=== PATIENT | female | born 1935 | race Caucasian/White ===

== ENCOUNTER 2017-04-27 16:04 | Inpatient (IN) | payer MEDICARE ==
[2017-04-27] MEDS ORDERED: Sodium Bicarb 50 MEQ/50 ML VIAL ONE (16:50)
[2017-04-27] MEDS ORDERED: DOPamine/D5W 400 mg/250 ml PREMIX ONE (16:50)
[2017-04-27] MEDS ORDERED: Cardioplegic Soln 1,000 ML BAG ONE (16:50)
[2017-04-27] MEDS ORDERED: Potassium Chloride 60 MEQ/30 ML VIAL ONE (16:50)
[2017-04-27] MEDS ORDERED: Papaverine 60 MG/2 ML VIAL ONE (16:50)
[2017-04-27] MEDS ORDERED: Thrombin 5000 UNITS/5 ML VIAL ONE (16:50)
[2017-04-27] MEDS ORDERED: Heparin 30,000 units/30 ml VIAL ONE (16:50)
[2017-04-27] MEDS ORDERED: Calcium Chloride 1 GM/10 ML Abboject SYRINGE ONE (16:50)
[2017-04-27] MEDS ORDERED: Lidocaine 2% PF 100 mg/5 ml Syringe ONE (16:50)
[2017-04-27] MEDS ORDERED: Nitroglycerin 50 MG/250 ML BOT ONE (16:50)
[2017-04-27] MEDS ORDERED: Mannitol 12.5 GM/50 ML ONE (16:50)
[2017-04-27] MEDS ORDERED: Magnesium Sulfate 1 GM/2 ML VIAL ONE (16:50)
[2017-04-27] MEDS ORDERED: Heparin 5,000 UNITS/ML VIAL ONE (16:50)
[2017-04-27] MEDS ORDERED: Protamine Sulfate 250 MG/25 ML VIAL ONE (16:50)
[2017-04-27] MEDS ORDERED: Aminocaproic Acid 5 GM/20 ML VIAL ONE (16:50)
[2017-04-27 17:20] LABS: Troponin I 0.495 ng/mL (< 0.028)
[2017-04-27] MEDS ORDERED: Ondansetron HCl/PF 4 MG/2 ML Vial IVP PRN ×2 (20:01→21:16)
[2017-04-27] MEDS ORDERED: Ondansetron ODT 4 MG TAB SL PRN (20:01)
[2017-04-27] MEDS ORDERED: Acetaminophen 325 MG TAB PO PRN (20:01)
[2017-04-27 20:10] LABS: Troponin I 0.738 ng/mL (< 0.028)
[2017-04-27] MEDS ORDERED: Nitroglycerin 0.4 MG TAB (25 Tab Bottle) PO PRN (21:16)
[2017-04-27] MEDS ORDERED: cloNIDine 0.1 MG TAB PO PRN (21:16)
[2017-04-27] MEDS ORDERED: Zolpidem Tartrate 5 MG TAB PO PRN (21:16)
[2017-04-27] MEDS ORDERED: NIFEdipine XL 60 MG TAB PO PRN (21:16)
[2017-04-27] MEDS ORDERED: Acetaminophen 500 MG TAB PO PRN (21:16)
[2017-04-27] MEDS ORDERED: Ondansetron ODT 4 MG TAB PO PRN (21:16)
[2017-04-27] MEDS ORDERED: hydrALAZINE 20 MG/ML VIAL SLOW IVP PRN (21:16)
[2017-04-28 01:04] LABS: Critical Call Chem Troponin I RESULT DECREASING; Troponin I 0.698 ng/mL (< 0.028)
--- NOTE | 2017-04-28 03:19 | HP ---
DATE OF ADMISSION: 04/27/2017 PRIMARY CARE PHYSICIAN: Patricia Carlos M.D. CHIEF COMPLAINT: Neck and arm pain. HISTORY OF PRESENT ILLNESS: This is an 81-year-old female, who presents to [facility] and transferred from [facility] after the patient presented w ith complaints of neck pain and pressure associated with arm discomfort over the last 3-4 weeks. Th e patient states the symptoms increased and worsened over the last 24-48 hours with associated diaph oresis. The patient also noted associated shortness of breath, but no nausea, vomiting, or diarrhea . The patient denied any recent trauma, injury, increased cough, congestion, or fever. The patient admits these symptoms are worse with increased stress in her life as she is the primary care provid er for her who has advanced dementia. The patient denies any known prior history of coronar y artery disease, but does state a longstanding history of hypertension, on multiple antihypertensiv e medications. The patient states she underwent echocardiogram evaluation in 10/2016, at which poin t she was told it was normal. The patient remains fairly active without a consistent exercise regim en. The patient does relate several medical conditions over the last 1-2 years that have been troub ling and leading to surgical intervention including removal of large ovarian tumor as well as eye coles rgery. The patient does state that she becomes \\\\"stressed out\\\\" and is a \\\\"worrier.\\\\" The ambreen ent denies any specific true chest pain. In the emergency room, the patient underwent general evalu ation with screening troponin I at 0.39 increasing to 0.74 on serial assessment. The patient receiv ed Lovenox 70 mg x1 dose in addition to nitroglycerin and IV metoprolol. The patient also received aspirin 240 mg. The patient was transferred to [facility] for further evalua tion. PAST MEDICAL HISTORY: 1. Hypertension with current treatment. 2. Osteoarthritis. 3. Hyperlipidemia. 4. History of ovarian tumor, status post resection. 5. Umbilical hernia. PAST SURGICAL HISTORY: 1. Status post hysterectomy. 2. Status post resection of ovarian tumor. 3. Status post bilateral knee surgery. CURRENT MEDICATIONS: 1. Lipitor 40 mg p.o. at bedtime. 2. Colace 200 mg p.o. at bedtime. 3. Fenofibrate 160 mg p.o. daily. 4. Losartan 100 mg p.o. daily. 5. Nifedipine ER 60 mg p.o. q.a.m. and 60 mg p.o. at bedtime. 6. Nabumetone 500 mg p.o. t.i.d. 7. Protonix 40 mg p.o. b.i.d. 8. Triamterene/hydrochlorothiazide 37.5/25 mg 1 tablet p.o. daily. 9. Hydralazine 25 mg p.o. t.i.d. ALLERGIES: No known drug allergies. FAMILY HISTORY: Both parents with hypertension. Mother with an unknown type of coronary artery dis ease. SOCIAL HISTORY: The patient is , originally from [facility]. No current al cohol, tobacco, or illicit drug use. Functional of all activities of daily living. Accompanied by her son in the hospital. REVIEW OF SYSTEMS: The following complete review of systems was negative, unless otherwise mentione d in the HPI or below: Constitutional: Weight loss or gain, ability to conduct usual activities. Skin: Rash, itching. Eyes: Double vision, pain. ENT/Mouth: Nose bleeding, neck stiffness, pain, tenderness. Cardiovascular: Palpitations, dyspnea on exertion, orthopnea. Respiratory: Shortness of breath, wheezing, cough, hemoptysis, fever, or night sweats. Gastrointestinal: Poor appetite, abdominal pain, heartburn, nausea, vomiting, constipation, or diar speedy. Genitourinary: Urgency, frequency, dysuria, nocturia. Musculoskeletal: Pain, swelling. Neurologic/Psychiatric: Anxiety, depression. Allergy/Immunologic: Skin rash, bleeding tendency. PHYSICAL EXAMINATION: VITAL SIGNS: On admission, blood pressure 165/84, pulse 83, respiratory rate is 18, temperature 97. 6 degrees Fahrenheit, O2 saturation 98% on room air. GENERAL APPEARANCE: This is an 81-year-old female, alert and oriented x3, pleasant, conve rsant, in no acute distress. HEENT: Pupils are equal, round, and reactive to light and accommodation. Extraocular muscles are i ntact. No scleral icterus, no conjunctival injection. Nares patent. OP is clear. Teeth in good r epair. NECK: Supple, no cervical adenopathy, no thyromegaly, no carotid bruits, no JVD appreciated. Cervi yesenia spine with full active and passive range of motion. CHEST: Lungs are clear to auscultation bilaterally. CARDIOVASCULAR: S1 and S2 without noted murmur. ABDOMEN: Obese, soft, nontender, nondistended. Bowel sounds are positive in all four quadrants. T here is no hepatosplenomegaly, no abdominal bruits, no rebound or guarding appreciated. EXTREMITIES: Warm and dry with fair turgor. No clubbing, cyanosis, or asymmetric edema appreciated . Pulses are palpable distally at the dorsalis pedis, posterior tibial, and popliteal arteries bila terally. Capillary refill less than 2 seconds. NEUROLOGIC: Cranial nerves II-XII are grossly intact. No focal or lateralizing signs appreciated. PERTINENT LABORATORY AND X-RAY FINDINGS: Basic metabolic profile within normal limits. Calcium 10. 3. LFTs within normal limits. Troponin I ranged between 0.39-0.74. Albumin 4.1. PT 13.2, INR 1.0 , PTT 27.7. CBC within normal limits. Portable chest x-ray dated 04/27/2017 showed chronic changes in bilateral lung wilson without acute process. EKG dated 04/27/2017 by my interpretation shows a sinus mechanism with heart rates in the 60s. Attenuated R waves noted in the precordial leads. Lef t axis deviation noted. Voltage criteria consistent with left ventricular hypertrophy in the latera l leads. No acute ST-T wave changes appreciated. ASSESSMENT AND PLAN: 1. Non-ST elevation myocardial infarction. The patient will be admitted to the telemetry unit. We will continue aspirin 325 mg daily. The patient received Lovenox 70 mg subcutaneously x1 dose in [facility] emergency room. We will consult Cardiology Service in the a.m. for evaluation and likely left art catheterization. We will continue Lipitor 40 mg p.o. at bedtime, nitroglycerin 0.4 mg every 5 m inutes p.r.n. chest pain. Check fasting lipid profile in the a.m. 2. Hypertension. Resume home antihypertensive regimen and monitor clinical response. 3. Hyperlipidemia. Check fasting lipid profile in the a.m. Continue Lipitor 40 mg p.o. at bedtime . 4. Gastroesophageal reflux. Continue Pepcid 20 mg p.o. b.i.d. 5. Prophylaxis. Sequential compression devices while in bed. Pepcid 20 mg p.o. b.i.d. 6. Code status is FULL. Surrogate medical decision maker is patient's son.
[2017-04-28 03:42] LABS: Anion Gap 13 mmol/L (10-20); BUN (Urea Nitrogen) 19 mg/dL (9.8-20.1); Calc. Creatinine Clearance 74 mL/min (70-130); Calcium 10.2 mg/dL (7.8-10.44); Carbon Dioxide 26 mmol/L (23-31); Chloride 105 mmol/L (98-107); Cholesterol 183 mg/dl (< 200 Desired); Estimated GFR-MDRD 79; LDL Cholesterol, Calculated 82 mg/dL
[2017-04-28 03:50] LABS: Troponin I 0.729 ng/mL (< 0.028)
[2017-04-28 03:56] LABS: Band 1 % (5-11); Hematocrit 37.5 % (36.0-47.0); Mean Platelet Volume 7.5 fL (7.4-10.4); Neutrophil 53 % (42-75); Reactive Lymphocytes 3 % (0-10); Red Blood Cell (RBC) Count 4.22 mill/uL (4.20-5.40); White Blood Cell (WBC) Count 7.9 thou/uL (4.8-10.8)
[2017-04-28] MEDS: hydrALAZINE 25 MG TAB PO SCH ×3 (08:46→20:22)
[2017-04-28] MEDS: Famotidine 20 MG TAB PO SCH ×2 (08:46→20:22)
[2017-04-28] MEDS: Losartan 25 MG TAB PO SCH (08:46)
[2017-04-28] MEDS ORDERED: Aspirin 325 MG TAB PO SCH (09:00)
[2017-04-28] MEDS ORDERED: Triamterene/Hydrochlorothiazide 37.5 mg/25 mg Tablet PO SCH (09:00)
[2017-04-28] MEDS ORDERED: NIFEdipine XL 60 MG TAB PO SCH (09:00)
[2017-04-28] MEDS ORDERED: Fenofibrate Nanocrystallized 145 MG TAB PO SCH (09:00)
[2017-04-28] MEDS ORDERED: Nitroglycerin 2% Ointment 1 INCH/1 GM Packet ONE (13:13)
[2017-04-28] MEDS ORDERED: Zolpidem Tartrate 5 MG TAB PO PRN (13:16)
[2017-04-28] MEDS ORDERED: [UNRECOGNIZED DRUG - REMARK] FS SCH (13:16)
[2017-04-28] MEDS: NIFEdipine XL 60 MG TAB PO SCH ×2 (13:18→20:21)
[2017-04-28] MEDS ORDERED: Iopamidol 370 76% 100 ML VIAL ONE (14:33)
[2017-04-28 15:18] LABS: PTT 29.2 SEC (22.9-36.1); Prothrombin Time 13.7 SEC (12.0-14.7)
--- NOTE | 2017-04-28 15:32 | PDOC.PN ---
- Subjective Encounter Start Date: 04/28/17 Encounter Start Time: 10:00 Subjective: f/u for NSTEMI. No current CP. Admits to some neck discomfort but no -: nausea or diaphoresis. Plan for heart cath today. - Objective Resuscitation Status: Resuscitation Status FULL:Full Resuscitation MAR Reviewed: Yes Vital Signs & Weight: Vital Signs (12 hours) Temp Pulse Resp BP BP BP Pulse Ox 04/28/17 13:18 64 04/28/17 13:05 97.9 F 55 L 18 148/70 H 96 04/28/17 08:58 96 04/28/17 08:45 98.3 F 64 18 189/82 H 96 04/28/17 08:00 98.3 F 64 18 96 04/28/17 04:00 98.0 F 60 16 168/69 H 96 Weight Weight 167 lb 6.4 oz I&O: 04/27/17 04/28/17 04/29/17 06:59 06:59 06:59 Intake Total 510 Output Total 550 Balance -40 Result Diagrams: 04/28/17 03:12 04/28/17 03:12 Additional Labs: Laboratory Tests 04/27/17 04/27/17 04/28/17 16:43 19:32 00:19 Troponin I 0.495 H* 0.738 H* 0.698 H* Triglycerides Cholesterol LDL Cholesterol, Calc HDL Cholesterol 04/28/17 04/28/17 03:12 03:12 Troponin I 0.729 H* Triglycerides 298 H Cholesterol 183 LDL Cholesterol, Calc 82 HDL Cholesterol 41 EKG Reviewed by me: Yes (Tele - SR) Phys Exam - Physical Examination Constitutional: NAD HEENT: PERRLA, oral pharynx no lesions Neck: no JVD, supple Respiratory: no wheezing, clear to auscultation bilateral Cardiovascular: RRR Gastrointestinal: soft, non-tender, no distention, positive bowel sounds Musculoskeletal: no edema, pulses present Neurological: normal sensation, moves all 4 limbs Psychiatric: A&O x 3 Skin: normal turgor, cap refill <2 seconds Dx/Plan (1) NSTEMI (non-ST elevated myocardial infarction) Code(s): I21.4 - NON-ST ELEVATION (NSTEMI) MYOCARDIAL INFARCTION Status: Acute Comment: Left heart cath today, ASA, Statin (2) HTN (hypertension) Code(s): I10 - ESSENTIAL (PRIMARY) HYPERTENSION Status: Acute Qualifiers: Hypertension type: essential hypertension Qualified Code(s): I10 - Essential (primary) hypertension Comment: Continue Losartan, Metoprolol and Nifedipine (3) HLD (hyperlipidemia) Code(s): E78.5 - HYPERLIPIDEMIA, UNSPECIFIED Status: Chronic Comment: Lipitor 40mg HS - Plan plan discussed w/ family, DVT proph w/SCDs Heart cath today -: Continue ASA and Lipitor -: Continue Metoprolol -: Nitrates prn CP -: 2D Echo pending * .
[2017-04-28] MEDS: Metoprolol Tartrate 25 MG TAB PO SCH ×2 (15:56→20:22)
[2017-04-28] MEDS: Nitroglycerin 2% Ointment 1 INCH/1 GM Packet TOP SCH ×2 (15:56→20:23)
--- NOTE | 2017-04-28 16:23 | CON ---
DATE OF CONSULTATION: 04/28/2017 HISTORY OF PRESENT ILLNESS: The patient is an 81-year-old woman who presents with acute onset of back and arm discomfort. The patient has no previous cardiac history. She has a history of hypertension. The patient was in her usual state of health until recently started noting having increasing discomfort in both her arms. This would last for several minutes. The chest discomfort progressed and she presented to the emergency with persistent discomfort. The patient denies having any present discomfort. The patient denies having any PND or orthopnea. PAST MEDICAL HISTORY: 1. Hypertension. 2. Osteoarthritis. 3. Ovarian tumor. PAST SURGICAL HISTORY: Hysterectomy and knee surgery. MEDICATIONS ON ADMISSION: Lipitor 40 at bedtime, hydralazine 25 t.i.d., losartan 100 daily, Colace 200 daily, TriCor 160 daily, Protonix 40 daily, nifedipine 60 b.i.d. and hydralazine 25 t.i.d. SOCIAL HISTORY: Nonsmoker. FAMILY HISTORY: No strong family history of heart disease. ALLERGIES: No known drug allergies. REVIEW OF SYSTEMS: Ten-point system is noticeable for anxiety and depression. No history of easy bruising or bleeding, bright red blood per rectum. PHYSICAL EXAMINATION: GENERAL: This is an elderly woman in no acute distress. Blood pressure 189/82. NECK: No jugular venous distention, no carotid bruits. LUNGS: Clear to auscultation. HEART: Regular rate and rhythm. Normal S1 and S2. ABDOMEN: Soft and nontender. EXTREMITIES: No edema. SKIN: Warm and dry. NEUROLOGIC: Nonfocal. VASCULAR: Radial pulses 2+. LABORATORY DATA: White blood count 7.9, hemoglobin 12.2, hematocrit 37.5 and platelets 238. Sodium was 140, potassium 3.7, chloride 105, bicarbonate 26, BUN 19, creatinine 0.71, troponin is 0.72, cholesterol is 183 and triglycerides 293. IMAGING DATA: Her EKG revealed her to have normal sinus rhythm, left axis deviation and voltage criteria for left ventricular hypertrophy. IMPRESSION AND PLAN: 1. Non-Q-wave myocardial infarction. 2. Hypertension. 3. Dyslipidemia. This patient presents with a non-Q-wave myocardial infarction. I have discussed the option of medical therapy versus invasive evaluation. We will proceed with cardiac catheterization to determine the extent of coronary artery disease. The risks involved in cardiac catheterization including ND, bleeding, stroke, cardiac arrhythmia, and cardiac have been explained to the patient. The patient understands these risks and wishes to proceed. MTDD
--- NOTE | 2017-04-28 18:41 | RAD ---
CHEST ONE VIEW 04/28/17 HISTORY: Chest pain. FINDINGS: The cardiac silhouette is magnified by projection. Pulmonary vasculature is unremarkable. Mediastinum is midline with aortic calcification. There is no lobar consolidation or evidence of pneumothorax. C ardiac monitor leads overlie the chest. IMPRESSION: Atherosclerosis. POS: ALIA
--- NOTE | 2017-04-28 19:03 | CON ---
DATE OF CONSULTATION: 04/28/2017 REASON FOR HOSPITALIZATION: Evaluate patient for coronary artery bypass grafting. ATTENDING PHYSICIAN: Dr. Miranda with [employer]. CONSULTING PHYSICIAN: Dr. Oreilly. Chart reviewed/patient examined/films reviewed. HISTORY OF PRESENT ILLNESS: Ms. Mayes is an 81-year-old woman who presented with number of weeks of h istory of neck and arm pain. At the time of admission, she had cardiac enzymes checked, which were p ositive with a troponin of 0.49. The troponin has risen to 0.72. She underwent cardiac catheterizat ion this afternoon, which showed severe 3-vessel disease. Ejection fraction is preferred at approxim ately 70%. I have been asked to see her and discuss coronary artery disease bypass grafting. POTENTIAL TARGETS: Include an LAD, OM2 and PDA. PAST MEDICAL HISTORY: 1. Hypertension. 2. Hyperlipidemia. 3. Osteoarthritis. 4. History of an ovarian tumor. PAST SURGICAL HISTORY: 1. Hysterectomy. 2. Resection of ovarian tumor. 3. Bilateral knee surgeries. CURRENT MEDICATIONS: 1. Lipitor 40 mg at bedtime. 2. Colace 200 mg at bedtime. 3. Fenofibrate 160 mg q. day. 4. Losartan 100 mg q. day. 5. Nifedipine ER 60 mg b.i.d. 6. Nabumetone 500 mg t.i.d. 7. Protonix 40 mg b.i.d. 8. Triamterene/HCTZ 37.5/25 q. day. ALLERGIES: None. SOCIAL HISTORY: She is . She recently moved to the area from [place] to be closer to her sons. Her has Alzheimer's and she needs to help taking care of her . She has not use d tobacco, alcohol or other drugs. She does not do any vigorous exercise, but does do all of her [employer]. REVIEW OF SYSTEMS: Ten-point review of system is performed and it is negative except as stated above . PHYSICAL EXAMINATION: GENERAL: This is a well-developed, well-nourished woman in no acute distress. VITAL SIGNS: Height is 5 feet 4 inches, weight is 167 pounds, BSA is 1.85. Temperature is 97.9, pul se is 64 and regular, blood pressure is 148/70. NECK: Supple without bruit. LUNGS: Chest is clear bilaterally. HEART: Rhythm is regular, without murmur. ABDOMEN: Soft and nontender. EXTREMITIES: There is no edema. VENOUS: There are no venous varicosities or venous stasis changes. PSYCHIATRIC: The patient is awake, alert and oriented to person, place and time. ASSESSMENT AND PLAN: This is a very pleasant 81-year-old woman who has severe 3-vessel disease, stat us post non-ST elevation and myocardial infarction. Ejection fraction is preserved. I discussed cor onary artery bypass grafting with her and she is agreeable to proceed. Potential target has included LAD, OM2 and PDA. Plan is for surgery in the morning.
[2017-04-28] MEDS ORDERED: Atorvastatin Calcium 40 MG TAB PO SCH (21:00)
[2017-04-28] MEDS ORDERED: Docusate 100 MG CAP PO SCH (21:00)
[2017-04-28] MEDS ORDERED: Metoprolol Tartrate 25 MG TAB PO SCH (21:00)
[2017-04-29] MEDS ORDERED: CEFAZOLIN/Water 2 GM/20 ML SYRINGE SLOW IVP SCH (02:15)
[2017-04-29] MEDS: Losartan 25 MG TAB PO SCH (05:22)
[2017-04-29] MEDS: Nitroglycerin 2% Ointment 1 INCH/1 GM Packet TOP SCH (05:22)
[2017-04-29] MEDS: Metoprolol Tartrate 25 MG TAB PO SCH (05:23)
[2017-04-29] MEDS ORDERED: Midazolam HCl 5 mg/5 ml Vial ONE (06:45)
[2017-04-29] MEDS ORDERED: Fentanyl 250 MCG/5 ML VIAL ONE (06:45)
[2017-04-29] MEDS ORDERED: Heparin 10,000 UNITS/1 ML VIAL 30,000 UNITS in Sodium Chloride 0.9% 1,000 ML FS SCH (06:45)
[2017-04-29] MEDS ORDERED: Vecuronium 10 MG VIAL ONE ×2 (06:45→08:05)
[2017-04-29] MEDS ORDERED: CEFAZOLIN/Water 2 GM/20 ML SYRINGE ONE (07:11)
[2017-04-29] MEDS ORDERED: Midazolam HCl 2 mg/2 ml Vial ONE (07:11)
[2017-04-29] MEDS ORDERED: Lidocaine 2% MPF 10 ML AMP (For Epidural Use) ONE (08:05)
[2017-04-29] MEDS ORDERED: Propofol 200 MG/20 ML VIAL ONE (08:05)
[2017-04-29] MEDS ORDERED: Albumin 5% 500 ML ONE (09:05)
[2017-04-29] MEDS ORDERED: Hetastarch 6% 500 ML 500 ML IVPB PRN (11:32)
[2017-04-29] MEDS ORDERED: D5 1/2 NS w/20 mEq KCL 1,000 ML IV SCH (11:32)
[2017-04-29] MEDS ORDERED: DOPamine 400 MG/D5W 250 ML 250 ML IVPB PRN (11:32)
[2017-04-29] MEDS ORDERED: Fentanyl 100 MCG/2 ML VIAL SLOW IVP PRN (11:32)
[2017-04-29] MEDS ORDERED: Nitroglycerin 50 MG/250 ML BOT 250 ML IVPB PRN (11:32)
[2017-04-29] MEDS ORDERED: Bisacodyl 5 MG TAB PO PRN (11:32)
[2017-04-29] MEDS ORDERED: hydrALAZINE 20 MG/ML VIAL SLOW IVP PRN (11:32)
[2017-04-29] MEDS ORDERED: Acetaminophen 325 MG TAB PO PRN (11:32)
[2017-04-29] MEDS ORDERED: Morphine PF 1 MG/ML SYR IVP PRN (11:32)
[2017-04-29] MEDS ORDERED: HYDROcodone/Acetaminophen 5/325 mg Tablet PO PRN (11:32)
[2017-04-29] MEDS ORDERED: Norepinephrine 8 MG/0.9% NS 250 ML IVPB PRN (11:32)
[2017-04-29] MEDS ORDERED: Guaifenesin DM 100-10/5 ML UDCUP PO PRN (11:32)
[2017-04-29] MEDS ORDERED: Ondansetron HCl/PF 4 MG/2 ML Vial IVP PRN (11:32)
[2017-04-29] MEDS ORDERED: Mag-Al 1200 mg/1200 mg/30 ML UDCUP PO PRN (11:32)
[2017-04-29] MEDS ORDERED: Promethazine HCl 25 MG/ML VIAL IM PRN (11:32)
[2017-04-29] MEDS ORDERED: Post-Op Insulin Drip Protocol IVPB ONE (11:32)
[2017-04-29] MEDS ORDERED: Bisacodyl 10 MG SUPP PR PRN (11:32)
[2017-04-29] MEDS ORDERED: Dextrose 50% Abboject 50 ML SYRINGE SLOW IVP PRN (11:43)
[2017-04-29] MEDS ORDERED: Dextrose 5% in Water 1,000 ML IV PRN (11:43)
[2017-04-29] MEDS ORDERED: Magnesium 2 GM/NS 0.9% 50 ML 2 GM in Premix Bag 1 BAG IVPB SCH (11:45)
--- NOTE | 2017-04-29 11:57 | OP ---
DATE OF OPERATION: 04/29/2017 PREOPERATIVE DIAGNOSES: Coronary artery disease/diabetes mellitus/hypertension/ hyperlipidemia. POSTOPERATIVE DIAGNOSES: Coronary artery disease/diabetes mellitus/hypertension /hyperlipidemia. PROCEDURES: Coronary artery bypass grafting x3: 1. Left internal mammary artery to 2.0 mm LAD -- good conduit target. 2. Reverse saphenous vein to 1.25 mm PDA -- good conduit and small target. 3. Reverse saphenous vein to 2.5 mm OM2 -- good conduit and target. SURGEON: Dr. Clint Boyce and Dr. David Esquivel. ANESTHESIA: General endotracheal, Dr. Markell Whitt. PUMP TIME: 54 minutes. CROSS-CLAMP TIME: 29 minutes. LOW CORE TEMPERATURE: 32 degrees Celsius. CDL DEDICATED TRUCK DRIVER: Lea Jordan. DRAINS: 24-Sammarinese chest tubes x2. DRIPS: None. TRANSFUSIONS: One unit of packed red blood cells for anemia on pump. PROCEDURE IN DETAIL: After consent was obtained, the patient was brought to the operating room and placed in the supine position on the operating room table. Appropriate anesthetic monitor was placed and general endotracheal anesthesia induced. Chest, abdomen, and legs were prepped and draped in usual sterile fashion. Greater saphenous vein was harvested from the left thigh with endoscopic technique. Due to bleeding from one of the vein branches, a counter incision was made in the mid thigh and the branch clipped. Wounds were irrigated and closed in layers and brittni applied to the mid thigh incision. Median sternotomy was performed. Left internal mammary artery was harvested as a pedicle graft. The patient was systemically heparinized. Distal pedicle was divided and infused with papaverine. Thymic fat and pericardium were divided with electrocautery. Pericardial stay sutures were placed. Aortic and atrial cannulation was performed. After adequate heparinization, the patient was placed on cardiopulmonary bypass after retrograde arterial and venous priming. Distal targets were marked. Aortic cross-clamp was applied and antegrade sanguinous cardioplegic arrest obtained. A 1500 mL of cold [place] cardioplegia was given. Topical cold solution was used. Reversed saphenous vein was anastomosed to the PDA in end-to-side fashion with running 7- 0 Prolene suture. Anastomosis was tested and was hemostatic. Reversed saphenous vein was anastomosed to the second OM in end-to-side fashion with running 7-0 Prolene suture. Anastomosis was tested and was hemostatic. The mammary artery was brought through a window in the pericardium and anastomosed to the distal LAD. On release of the mammary clamp, there was good hooding of the anastomosis and good distal flow. Pedicle was secured with interrupted 6-0 Prolene suture. Cross-clamp was removed and partial occluding clamp placed. Saphenous veins were anastomosed to individual punch sites in the aorta with running 6-0 Prolene suture. Partial occluding clamp was removed and grafts deaired. Anastomoses were inspected for hemostasis, which was good. The patient was warmed and weaned from cardiopulmonary bypass. After resumption of sinus rhythm, good hemodynamics, and a temperature greater than 36.5, bypass was discontinued. Transfusions were given. Protamine was administered. Decannulation was performed and pursestring sutures secured. Both cannulation sites reinforced with vein pledgeted 4-0 Prolene suture. After adequate hemostasis had been obtained, 24-Sammarinese chest tubes were placed in the mediastinum. Vancomycin paste was placed on the sternal edges. Once again, hemostasis was ensured. Sternum was closed with #5 wire. Sternum was then treated with platelet-rich plasma. Wires were twisted and buried. Wounds were irrigated, treated with platelet-poor plasma, and closed in multiple layers. The patient tolerated the procedure well and was transferred to the intensive care unit in stable, but critical condition. THANH
[2017-04-29] MEDS: Ketorolac Tromethamine 30 MG/ML VIAL IVP SCH ×3 (11:59→23:57)
--- NOTE | 2017-04-29 12:12 | RAD ---
CHEST ONE VIEW: History: Post open heart surgery. Comparison: Chest one view, prior day. FINDINGS: Patient intubated. Endotracheal tube tip 3 cm into the wan. There is atelectasis in the lung bases . New central venous catheter is in place with its tip at the right atrium. No acute osseous abnormality. Drains are present. New median sternotomy wires. IMPRESSION: Expected post-operative findings without complication. POS: NAOMI
[2017-04-29 12:16] LABS: Oxyhemoglobin 95.2 % (94.0-97.0); Sodium 143 mmol/L (135-148)
[2017-04-29 12:19] LABS: Mechanical Tidal Volume 500 ml; Mode PSIMV; Modified Allen's Test NOT DONE; Pressure Support 10 cmH2O; Vent YES
[2017-04-29 12:24] LABS: #Eosinphils 0.1 thou/uL (0.0-0.7); #Lymphocytes 1.7 thou/uL (1.20-3.40); #Monocytes 0.4 thou/uL (0.11-0.59); #Neutrophils 9.6 thou/uL (1.40-6.50); %Eosinophils 0.9 % (0.0-10.0); %Lymphocytes 14.6 % (21.0-51.0); %Monocytes 3.5 % (0.0-10.0); Hematocrit 35.5 % (36.0-47.0); Mean Platelet Volume 7.8 fL (7.4-10.4); Red Blood Cell (RBC) Count 4.03 mill/uL (4.20-5.40); White Blood Cell (WBC) Count 11.8 thou/uL (4.8-10.8)
[2017-04-29 12:29] LABS: PTT 33.4 SEC (22.9-36.1); Prothrombin Time 16.4 SEC (12.0-14.7)
[2017-04-29 12:50] LABS: Anion Gap 11 mmol/L (10-20); BUN (Urea Nitrogen) 16 mg/dL (9.8-20.1); Calc. Creatinine Clearance 76 mL/min (70-130); Calcium 8.6 mg/dL (7.8-10.44); Carbon Dioxide 23 mmol/L (23-31); Chloride 109 mmol/L (98-107); Estimated GFR-MDRD 81
[2017-04-29] MEDS: Insulin Regular 300 UNITS/3 ML VIAL SC PRN ×3 (12:59→21:02)
[2017-04-29] MEDS: Potassium Chloride 20 MEQ/100 ML PREMIX BAG IVPB PRN ×2 (13:03→17:52)
[2017-04-29] MEDS: CEFAZOLIN/Water 2 GM/20 ML SYRINGE SLOW IVP SCH ×2 (13:03→20:59)
[2017-04-29] MEDS ORDERED: Magnesium 2 GM/NS 0.9% 100 ML 2 GM in Premix Bag 1 BAG IVPB SCH (13:30)
--- NOTE | 2017-04-29 14:24 | PDOC.PN ---
- Subjective Encounter Start Date: 04/29/17 Encounter Start Time: 14:00 Subjective: f/u CABG x 3v after NSTEMI. Remains intubated currently on Nitro gtt. -: Weaning mech vent per protocol. - Objective Resuscitation Status: Resuscitation Status FULL:Full Resuscitation MAR Reviewed: Yes Vital Signs & Weight: Vital Signs (12 hours) Temp Pulse Resp BP Pulse Ox 04/29/17 13:00 97.9 F 04/29/17 12:00 10 L 04/29/17 11:32 97.9 F 68 10 L 98 04/29/17 05:00 97.9 F 58 L 18 159/69 H 94 L Weight Weight 168 lb Most Recent Monitor Data Heart Rate from ECG 74 NIBP 121/66 NIBP BP-Mean 75 Respiration from ECG 16 SpO2 98 I&O: 04/28/17 04/29/17 04/30/17 06:59 06:59 06:59 Intake Total 510 840 120 Output Total 550 1370 770 Balance -40 -530 -650 Result Diagrams: 04/29/17 12:11 04/29/17 12:11 Additional Labs: Accuchecks 04/29/17 04/29/17 04/29/17 10:29 10:02 09:24 POC Glucose 146 H 133 H 120 H 04/29/17 08:10 POC Glucose 105 Laboratory Tests 04/27/17 04/27/17 04/28/17 16:43 19:32 00:19 WBC Hgb Potassium Troponin I 0.495 H* 0.738 H* 0.698 H* Triglycerides Cholesterol LDL Cholesterol, Calc HDL Cholesterol 04/28/17 04/28/17 04/28/17 03:12 03:12 03:12 WBC 7.9 Hgb 12.2 Potassium 3.7 Troponin I 0.729 H* Triglycerides 298 H Cholesterol 183 LDL Cholesterol, Calc 82 HDL Cholesterol 41 Radiology Reviewed by me: Yes (PCXR - lines/tubes in place, post-op changes) EKG Reviewed by me: Yes (Tele - SR in 60's) Phys Exam - Physical Examination opens eyes to name briefly, mech vent with ETT in place HEENT: oral pharynx no lesions Neck: no JVD, supple Respiratory: no wheezing, clear to auscultation bilateral Cardiovascular: RRR Gastrointestinal: soft, non-tender, no distention, positive bowel sounds chest incision CDI with surgical dressing Musculoskeletal: no edema, pulses present Neurological: moves all 4 limbs Skin: normal turgor, cap refill <2 seconds Dx/Plan (1) NSTEMI (non-ST elevated myocardial infarction) Code(s): I21.4 - NON-ST ELEVATION (NSTEMI) MYOCARDIAL INFARCTION Status: Acute Comment: Left heart cath with severe 3v dz, ASA, Statin (2) S/P CABG x 3 Code(s): Z95.1 - PRESENCE OF AORTOCORONARY BYPASS GRAFT Status: Acute Comment: post-op CABG protocol, Nitro gtt (3) HTN (hypertension) Code(s): I10 - ESSENTIAL (PRIMARY) HYPERTENSION Status: Acute Qualifiers: Hypertension type: essential hypertension Qualified Code(s): I10 - Essential (primary) hypertension Comment: Continue Losartan, Metoprolol and Nifedipine (4) HLD (hyperlipidemia) Code(s): E78.5 - HYPERLIPIDEMIA, UNSPECIFIED Status: Chronic Comment: Lipitor 40mg HS (5) Hypokalemia Code(s): E87.6 - HYPOKALEMIA Status: Acute Comment: KCL replacement with CCU electrolyte protocol - Plan plan discussed w/ family, respiratory therapy, DVT proph w/SCDs Continue routine CABG protocol -: Wean off Mech vent per protocol -: KCL replacment -: Wean Nitro gtt -: AM lab: BMP, CBC * .
[2017-04-29 15:45] LABS: Oxyhemoglobin 94.3 % (94.0-97.0); Sodium 143 mmol/L (135-148)
[2017-04-29 15:46] LABS: Mode CPAP; Pressure Support 5 cmH2O; Vent YES
--- NOTE | 2017-04-29 16:13 | CON ---
DATE OF CONSULTATION: 04/29/2017 SERVICE: Pulmonary Medicine. INTERVAL HISTORY: The patient is an 81-year-old white female with past medical history significant for hypertension and dyslipidemia. She was in her usual state of health when she started having onset of neck and arm pain. She was found to have a non-ST elevation MT. Cardiac catheterization demonstrated operable disease. She went for her coronary artery bypass graft in fairly decent health. She is postop day #0 from that procedure. She remains with an endotracheal tube in good position. She is breathing comfortably. She is actually off of all drips. She cannot provide any additional elements of the history currently. Since the operation, she has had no significant events. PAST MEDICAL HISTORY: 1. Hypertension. 2. Dyslipidemia. 3. Osteoarthritis. 4. Umbilical hernia. 5. History of ovarian tumor status post oophorectomy. PAST SURGICAL HISTORY: 1. Hysterectomy. 2. Unilateral oophorectomy. 3. Knee replacement surgery, bilateral. FAMILY HISTORY: Noncontributory. SOCIAL HISTORY: The patient is . She is originally from [place]. She does not use any current alcohol, tobacco or illicit drug use. She is quite functional at home and is able to maintain her own household. ALLERGIES: No known drug allergies. MEDICATIONS: List of her inpatient medications was reviewed. No updates were made at this time. REVIEW OF SYSTEMS: This could not be obtained as the patient is currently intubated and under the influence of sedation. PHYSICAL EXAMINATION: VITAL SIGNS: Afebrile. Pulse is 74, blood pressure 118/46, respirations 16, saturation 98% on 27% FiO2. GENERAL: The patient is intubated under the influence of some sedation. HEENT: Normocephalic, atraumatic. Sclerae are white, conjunctivae pink. Oral and nasal mucosa is moist without lesions. LUNGS: Excellent air entry. There is no prolonged expiratory phase. I do not appreciate any crackles or rhonchi. HEART: Normal rate, regular. ABDOMEN: Soft, nontender, nondistended, bowel sounds positive. MUSCULOSKELETAL: No cyanosis or clubbing. There is no pitting in the bilateral lower extremities. Left leg is wrapped in Emeka bandage. LABORATORY DATA: WBC 11.8, hemoglobin 11.7, and platelets 165,000. INR 1.3. PH 7.46, pCO2 of 32, pO2 of 73. Potassium 3.0. Basic metabolic profile is otherwise unremarkable. IMAGING: Chest x-ray demonstrates endotracheal tube is in excellent position roughly 4 cm above the wan. There are low lung volumes. There is possible atelectasis of the left lower lobe. I do not appreciate much vascular markings behind heart. There is a right subclavian central venous catheter that terminates in the right atrium. Left sided thoracostomy drain versus mediastinal drain is identified overlying the heart or left lung base. ASSESSMENT: 1. Acute hypoxic respiratory failure, improving. 2. Coronary artery disease, status post coronary artery bypass graft, postop day #0. 3. Hypertension. 4. Non-ST elevation myocardial infarction. PLAN: The patient will be placed on spontaneous breathing trial when she wakes up from sedation. Her original ABG looks fantastic. I have decreased her rate and her tidal volume ever so slightly to let her drive the ventilator. Once she meets criteria, extubation will be considered. CRITICAL CARE TIME: 30 minutes. MTDD
[2017-04-29] MEDS: Fentanyl 100 MCG/2 ML VIAL SLOW IVP PRN ×3 (16:43→20:56)
[2017-04-29 17:10] LABS: Hematocrit 36.6 % (36.0-47.0)
[2017-04-29] MEDS ORDERED: Famotidine/PF 20 mg/2ml Vial SLOW IVP SCH (21:00)
[2017-04-29] MEDS: HYDROcodone/Acetaminophen 5/325 mg Tablet PO PRN (22:39)
[2017-04-30] MEDS: Fentanyl 100 MCG/2 ML VIAL SLOW IVP PRN ×2 (01:25→05:54)
[2017-04-30] MEDS: HYDROcodone/Acetaminophen 5/325 mg Tablet PO PRN ×2 (04:43→13:07)
[2017-04-30] MEDS: Insulin Regular 300 UNITS/3 ML VIAL SC PRN ×2 (04:49)
[2017-04-30] MEDS: CEFAZOLIN/Water 2 GM/20 ML SYRINGE SLOW IVP SCH (05:37)
[2017-04-30] MEDS: Ketorolac Tromethamine 30 MG/ML VIAL IVP SCH ×3 (05:39→18:42)
[2017-04-30 05:42] LABS: Anion Gap 10 mmol/L (10-20); BUN (Urea Nitrogen) 21 mg/dL (9.8-20.1); Calc. Creatinine Clearance 67 mL/min (70-130); Calcium 8.9 mg/dL (7.8-10.44); Carbon Dioxide 25 mmol/L (23-31); Chloride 109 mmol/L (98-107); Estimated GFR-MDRD 68
[2017-04-30 06:07] LABS: Mean Platelet Volume 8.7 fL (7.4-10.4)
[2017-04-30] MEDS ORDERED: Milk Of Magnesia 30 ML UDCUP PO PRN (07:43)
[2017-04-30] MEDS ORDERED: Mag-Al 1200 mg/1200 mg/30 ML UDCUP PO PRN (07:43)
[2017-04-30] MEDS ORDERED: Guaifenesin DM 100-10/5 ML UDCUP PO PRN (07:43)
[2017-04-30] MEDS ORDERED: Bisacodyl 5 MG TAB PO PRN (07:43)
[2017-04-30] MEDS ORDERED: Bisacodyl 10 MG SUPP PR PRN (07:43)
[2017-04-30] MEDS ORDERED: Fentanyl 100 MCG/2 ML VIAL SLOW IVP PRN ×2 (07:43)
[2017-04-30] MEDS ORDERED: diphenhydrAMINE 25 MG CAP PO PRN (07:43)
[2017-04-30] MEDS ORDERED: Ondansetron HCl/PF 4 MG/2 ML Vial IVP PRN (07:43)
[2017-04-30] MEDS ORDERED: Acetaminophen 325 MG TAB PO PRN (07:43)
[2017-04-30] MEDS ORDERED: Nitroglycerin 0.4 MG TAB 1 EACH SL PRN (07:43)
[2017-04-30] MEDS ORDERED: Mineral Oil ENEMA PR PRN (07:43)
[2017-04-30] MEDS ORDERED: Artificial Tears 18 DROP/0.9 ML EA EYE PRN (07:43)
[2017-04-30 07:53] LABS: White Blood Cell (WBC) Count 12.5 thou/uL (4.8-10.8)
[2017-04-30 07:54] LABS: Hematocrit 34.2 % (36.0-47.0)
[2017-04-30 07:55] LABS: %Monocytes 8.8 % (0.0-10.0)
[2017-04-30 07:56] LABS: #Lymphocytes 1.9 thou/uL (1.20-3.40); #Monocytes 1.1 thou/uL (0.11-0.59); #Neutrophils 9.5 thou/uL (1.40-6.50); %Basophils 0.1 % (0.0-1.0); %Eosinophils 0.3 % (0.0-10.0)
--- NOTE | 2017-04-30 08:37 | RAD ---
PORTABLE CHEST: HISTORY: Postop open heart surgery. COMPARISON: Prior day's study. FINDINGS: Heart size is enlarged with postop sternotomy changes. The endotracheal tube has been removed. Righ t subclavian line is unchanged in position. Bibasilar atelectatic lung changes are again noted. IMPRESSION: Interval removal of the endotracheal tube. Otherwise, essentially stable chest. POS: [facility]
[2017-04-30] MEDS: Aspirin 325 mg Enteric Coated Tablet PO SCH (08:44)
[2017-04-30] MEDS: Famotidine 20 MG TAB PO SCH ×2 (08:45→20:57)
[2017-04-30] MEDS: Fenofibrate Nanocrystallized 145 MG TAB PO SCH (08:45)
[2017-04-30] MEDS: Furosemide 20 MG TAB PO SCH (08:45)
[2017-04-30] MEDS ORDERED: Aspirin 325 MG TAB PO SCH (09:00)
[2017-04-30] MEDS ORDERED: Magnesium 2 GM/NS 0.9% 50 ML 2 GM in Premix Bag 1 BAG IVPB SCH (09:00)
[2017-04-30] MEDS ORDERED: Magnesium 2 GM/NS 0.9% 100 ML 2 GM in Premix Bag 1 BAG IVPB SCH (09:00)
--- NOTE | 2017-04-30 12:50 | PDOC.PN ---
- Subjective Encounter Start Date: 04/30/17 Encounter Start Time: 10:15 -: old records requested/rev Pt seen and examined, chart reviewed in its entirety. This is my first visit with this patient. Pt admitted 04/27 for NSTEMI, s/p CABG on 04/29. post op is stable, but didnt sleep well overnight due to neighbor here screaming out all night. Pt feels like her rehab is being delayed, PT here earlier, pt u in chair, would come back later to get het up. PT sounds frustrated. no F/c, no N/V/d/c, no CP or SOB at preent except post op mccallum with breathing. Not using IS for 3-4 different reasons. 10 point ROS performed and neg for all systems except as above - Objective Resuscitation Status: Resuscitation Status FULL:Full Resuscitation MAR Reviewed: Yes Vital Signs & Weight: Vital Signs (12 hours) Temp Pulse Resp Pulse Ox 04/30/17 08:00 97.6 F 70 18 94 L 04/30/17 07:00 97.6 F 04/30/17 04:00 98 F Weight Weight 175 lb 14.862 oz Most Recent Monitor Data Heart Rate from ECG 77 NIBP 129/60 NIBP BP-Mean 86 Respiration from ECG 15 SpO2 92 I&O: 04/29/17 04/30/17 05/01/17 06:59 06:59 06:59 Intake Total 840 1214 100 Output Total 1370 1515 110 Balance -530 -301 -10 Result Diagrams: 04/30/17 04:35 04/30/17 04:35 Additional Labs: Accuchecks 04/30/17 04/30/17 04/29/17 04:49 00:00 21:01 POC Glucose 132 H 130 H 122 H 04/29/17 15:39 POC Glucose 137 H Radiology Reviewed by me: Yes EKG Reviewed by me: Yes Phys Exam - Physical Examination Constitutional: NAD HEENT: PERRLA, moist MMs, sclera anicteric, oral pharynx no lesions Neck: no nodes, no JVD, supple, full ROM Respiratory: no wheezing, no rales, no rhonchi basilar crackles Cardiovascular: RRR, no significant murmur, no rub Gastrointestinal: soft, non-tender, no distention, positive bowel sounds Musculoskeletal: pulses present, edema present legs xrapped, trace pedla edema Neurological: non-focal, normal sensation, moves all 4 limbs Lymphatic: no nodes Psychiatric: normal affect, A&O x 3 Skin: no rash, normal turgor, cap refill <2 seconds Deviation from normal: sternotomy incision appropriately red, no drianage Dx/Plan (1) HTN (hypertension) Code(s): I10 - ESSENTIAL (PRIMARY) HYPERTENSION Status: Acute Qualifiers: Hypertension type: essential hypertension Qualified Code(s): I10 - Essential (primary) hypertension Comment: Continue Losartan, Metoprolol and Nifedipine (2) Hypokalemia Code(s): E87.6 - HYPOKALEMIA Status: Acute Comment: KCL replacement with CCU electrolyte protocol (3) NSTEMI (non-ST elevated myocardial infarction) Code(s): I21.4 - NON-ST ELEVATION (NSTEMI) MYOCARDIAL INFARCTION Status: Acute Comment: Left heart cath with severe 3v dz, ASA, Statin. S/P CABG x 3v on 04/29/2017 (4) S/P CABG x 3 Code(s): Z95.1 - PRESENCE OF AORTOCORONARY BYPASS GRAFT Status: Acute Comment: post-op CABG protocol, Nitro gtt (5) HLD (hyperlipidemia) Code(s): E78.5 - HYPERLIPIDEMIA, UNSPECIFIED Status: Chronic Qualifiers: Hyperlipidemia type: unspecified Qualified Code(s): E78.5 - Hyperlipidemia , unspecified Comment: Lipitor 40mg HS - Plan cont current plan of care, PT/OT, out of bed/ambulate * .
--- NOTE | 2017-04-30 15:47 | PRG ---
DATE OF SERVICE: 04/30/2017 SERVICE: Pulmonary Medicine. INTERVAL HISTORY: The patient is doing really well. That being said, she is very frustrated about t he noise that came from local neighbors here last night. In honesty, it was a fairly loud evening. She denies any current fevers, chills, nausea or vomiting. She did wake up with her mouth open. It was very dry and she had a chest discomfort. She has just got some pain medication for this. It is preventing her from taking deep breath and coughing. She got a dose of Lasix and is opened up with t his thing. Otherwise, there has been no interval change to her condition. She continues to mobilize as tolerated. PHYSICAL EXAMINATION: VITAL SIGNS: Afebrile, pulse 75, blood pressure 147/64, respirations 16, saturation 97% on room air. GENERAL: Patient is awake, alert, in no apparent distress. LUNGS: Decreased air entry. Crackles are present dependently. There is no prolonged expiratory pha se. I do not appreciate wheezing or rhonchi. HEART: Normal rate, regular. ABDOMEN: Soft, nontender, nondistended. Bowel sounds positive. MUSCULOSKELETAL: No cyanosis or clubbing. There is trace pitting in the bilateral lower extremities . NEUROLOGIC: Grossly nonfocal. LABORATORY DATA: WBC 12.5 and up trending, hemoglobin 11.0, platelets 182,000. INR 1.3. Basic met abolic profile is essentially unremarkable with a creatinine stable at 0.81. IMAGING: Chest x-ray demonstrates interval removal of the endotracheal tube. Otherwise, the right s ubclavian central venous catheter is in good position. There is bibasilar atelectasis evident. ASSESSMENT: 1. Acute hypoxic respiratory failure, improving. 2. Coronary artery disease, status post coronary artery bypass graft, postoperative day #1. 3. Hypertension. 4. Non-ST elevation myocardial infarction. PLAN: We will get control of her pain. We will need to watch her volume status closely and provide her with Lasix if needed. Her chest tubes have been removed. Her Mcclure catheter will be removed whe n she stops putting out urine from the Lasix. From a purely respiratory perspective, she is ready fo r transition to the telemetry unit. We will need to focus our efforts on mobilizing her if tolerated .
[2017-04-30] MEDS ORDERED: hydrALAZINE 20 MG/ML VIAL SLOW IVP PRN (17:11)
[2017-04-30] MEDS: Docusate 100 MG CAP PO SCH (20:57)
[2017-04-30] MEDS: Atorvastatin Calcium 40 MG TAB PO SCH (20:57)
[2017-05-01] MEDS: Ketorolac Tromethamine 30 MG/ML VIAL IVP SCH ×4 (00:15→18:13)
[2017-05-01] MEDS: Aspirin 325 mg Enteric Coated Tablet PO SCH (09:08)
[2017-05-01] MEDS: Famotidine 20 MG TAB PO SCH ×2 (09:08→20:51)
[2017-05-01] MEDS: Fenofibrate Nanocrystallized 145 MG TAB PO SCH (09:09)
[2017-05-01] MEDS: Furosemide 20 MG TAB PO SCH (09:09)
[2017-05-01] MEDS: NIFEdipine XL 60 MG TAB PO SCH (09:09)
[2017-05-01] MEDS ORDERED: Losartan 25 MG TAB PO SCH (09:30)
--- NOTE | 2017-05-01 09:31 | PRG ---
DATE OF SERVICE: 05/01/2017 SUBJECTIVE: Ms. Mayes is sitting up in the chair. She states she has been coughing some, but it is p roductive cough. She is not having chest pain from angina, but she has incisional pain, she is not short of breath. PHYSICAL EXAMINATION: VITAL SIGNS: Her blood pressure is elevated at 150/72, pulse 80, it is regular. LUNGS: Clear. CARDIAC: Normal S1 and normal S2. ABDOMEN: Soft, nontender. EXTREMITIES: No edema. ASSESSMENT: 1. Status post bypass surgery. 2. Hypertension, uncontrolled. 3. History of hypercholesterolemia. PLAN: 1. Resume losartan. 2. If blood pressure is still high and more, resume nifedipine. 3. She is on beta-blockers. 4. Continue statin therapy. 5. Continue other medicines as she has some mixed hyperlipidemia.
--- NOTE | 2017-05-01 16:41 | PDOC.PN ---
- Subjective Encounter Start Date: 05/01/17 Encounter Start Time: 16:39 Patient seen and examined. No new complaints. No overnight events - Objective Resuscitation Status: Resuscitation Status FULL:Full Resuscitation MAR Reviewed: Yes Vital Signs & Weight: Vital Signs (12 hours) Temp Pulse Resp BP BP Pulse Ox 05/01/17 12:48 99.1 F 96 16 155/71 H 92 L 05/01/17 09:09 80 05/01/17 09:05 98.7 F 80 16 150/72 H 95 05/01/17 05:12 98.4 F 87 20 156/74 H 95 Weight Weight 176 lb 11.2 oz Most Recent Monitor Data Heart Rate from ECG 75 NIBP 132/53 NIBP BP-Mean 68 Respiration from ECG 15 SpO2 96 I&O: 04/30/17 05/01/17 05/02/17 06:59 06:59 06:59 Intake Total 1214 700 Output Total 1515 1190 Balance -301 -490 Result Diagrams: 04/30/17 04:35 04/30/17 04:35 Phys Exam - Physical Examination Constitutional: NAD HEENT: PERRLA Neck: no JVD Respiratory: no wheezing, no rales Cardiovascular: no significant murmur Gastrointestinal: non-tender Musculoskeletal: pulses present Neurological: normal sensation, moves all 4 limbs Psychiatric: A&O x 3 Dx/Plan (1) HTN (hypertension) Code(s): I10 - ESSENTIAL (PRIMARY) HYPERTENSION Status: Acute Qualifiers: Hypertension type: essential hypertension Qualified Code(s): I10 - Essential (primary) hypertension Comment: Continue Losartan, Metoprolol and Nifedipine (2) Hypokalemia Code(s): E87.6 - HYPOKALEMIA Status: Acute Comment: KCL replacement with CCU electrolyte protocol (3) NSTEMI (non-ST elevated myocardial infarction) Code(s): I21.4 - NON-ST ELEVATION (NSTEMI) MYOCARDIAL INFARCTION Status: Acute Comment: Left heart cath with severe 3v dz, ASA, Statin. S/P CABG x 3v on 04/29/2017 (4) S/P CABG x 3 Code(s): Z95.1 - PRESENCE OF AORTOCORONARY BYPASS GRAFT Status: Acute Comment: post-op CABG protocol, Nitro gtt (5) HLD (hyperlipidemia) Code(s): E78.5 - HYPERLIPIDEMIA, UNSPECIFIED Status: Chronic Qualifiers: Hyperlipidemia type: unspecified Qualified Code(s): E78.5 - Hyperlipidemia , unspecified Comment: Lipitor 40mg HS - Plan * doing well * f/u cvts plan
--- NOTE | 2017-05-01 16:59 | PRG ---
DATE OF SERVICE: 05/01/2017 SUBJECTIVE: This morning, awake, alert, responsive. He is having chest pain. He is coughing up spu yamila that is grossly purulent. OBJECTIVE: VITAL SIGNS: Blood pressure 150/72, SATs 95% on 1 L, temperature 98. CHEST: Chest reveals extensive rhonchi and crackles. CARDIAC: Normal S1, S2. No gallops. ABDOMEN: Soft, no masses. IMPRESSION: Status post coronary artery bypass graft, bronchitis, obesity. PLAN: Continue neb treatments, supportive care, antibiotics. We will follow.
[2017-05-01] MEDS: Atorvastatin Calcium 40 MG TAB PO SCH (20:51)
[2017-05-01] MEDS: Cefuroxime Axetil 250 MG TAB PO SCH (20:51)
[2017-05-01] MEDS: Docusate 100 MG CAP PO SCH (20:51)
[2017-05-01] MEDS: Zolpidem Tartrate 5 MG TAB PO PRN (21:03)
[2017-05-02] MEDS: Ketorolac Tromethamine 30 MG/ML VIAL IVP SCH ×3 (01:09→11:38)
[2017-05-02 05:46] LABS: Anion Gap 10 mmol/L (10-20); BUN (Urea Nitrogen) 17 mg/dL (9.8-20.1); BUN/Creatinine Ratio 25.76; Calc. Creatinine Clearance 82 mL/min (70-130); Calcium 9.3 mg/dL (7.8-10.44); Carbon Dioxide 26 mmol/L (23-31); Chloride 103 mmol/L (98-107); Estimated GFR-MDRD 86
[2017-05-02 06:12] LABS: #Eosinphils 0.4 thou/uL (0.0-0.7); #Lymphocytes 1.5 thou/uL (1.20-3.40); #Monocytes 1.2 thou/uL (0.11-0.59); #Neutrophils 7.6 thou/uL (1.40-6.50); %Basophils 0.2 % (0.0-1.0); %Eosinophils 3.4 % (0.0-10.0); %Lymphocytes 14.3 % (21.0-51.0); %Monocytes 11.1 % (0.0-10.0); Hematocrit 30.4 % (36.0-47.0); Mean Platelet Volume 8.3 fL (7.4-10.4); Red Blood Cell (RBC) Count 3.38 mill/uL (4.20-5.40); White Blood Cell (WBC) Count 10.7 thou/uL (4.8-10.8)
[2017-05-02] MEDS ORDERED: Furosemide 20 MG/2 ML VIAL SLOW IVP SCH (09:30)
[2017-05-02] MEDS: Cefuroxime Axetil 250 MG TAB PO SCH ×2 (09:31→21:23)
[2017-05-02] MEDS: Aspirin 325 mg Enteric Coated Tablet PO SCH (09:31)
[2017-05-02] MEDS: Fenofibrate Nanocrystallized 145 MG TAB PO SCH (09:32)
[2017-05-02] MEDS: Furosemide 20 MG TAB PO SCH (09:32)
[2017-05-02] MEDS: Famotidine 20 MG TAB PO SCH ×2 (09:32→21:23)
[2017-05-02] MEDS: Losartan 25 MG TAB PO SCH (09:32)
[2017-05-02] MEDS: NIFEdipine XL 60 MG TAB PO SCH (09:33)
--- NOTE | 2017-05-02 09:49 | PRG ---
DATE OF SERVICE: 05/02/2017 SUBJECTIVE: Ms. Mayes has no chest pain, but she says she feels short of breath this morning. Her re spiratory rate appears increased. She is not in distress. She had diffuse sweating last night. PHYSICAL EXAMINATION: VITAL SIGNS: Her blood pressure is 148/69, pulse 70 regular. LUNGS: Clear. CARDIAC: Normal S1, S2. ABDOMEN: Soft, nontender. EXTREMITIES: No edema. ASSESSMENT: 1. Hypertension. 2. Status post bypass. 3. Probably retaining some fluid. PLAN: 1. I will give her a dose of furosemide 20 mg one time. 2. She is on antigens receptive katya and nifedipine.
[2017-05-02] MEDS: Benzonatate 100 MG CAP PO PRN ×2 (11:42→21:24)
[2017-05-02] MEDS ORDERED: Potassium Chloride 20 MEQ TAB PO SCH (12:00)
--- NOTE | 2017-05-02 12:13 | PRG ---
DATE OF SERVICE: 05/02/2017 SUBJECTIVE: This morning, she is still short of breath, still coughing a large volume of thick sputu m, less discolored. OBJECTIVE: VITAL SIGNS: Temperature is 98, pulse 90, blood pressure 166/71 and respiratory rate 18. CHEST: Chest reveals decreased breath sounds with rhonchi. CARDIAC: Normal S1, S2. ABDOMEN: Soft, no masses. LABORATORY DATA: White count 10,000, H&H 9 and 30, platelet count normal. Electrolytes are normal. IMPRESSION: 1. Status post coronary artery bypass graft, respiratory failure. 2. Bronchitis. PLAN: Continue neb treatments. Antibiotics, supportive care. We will follow.
--- NOTE | 2017-05-02 16:13 | PDOC.PN ---
- Subjective Encounter Start Date: 05/02/17 Encounter Start Time: 16:11 Patient seen and examined. No new complaints. No overnight events - Objective Resuscitation Status: Resuscitation Status FULL:Full Resuscitation MAR Reviewed: Yes Vital Signs & Weight: Vital Signs (12 hours) Temp Pulse Pulse Pulse Resp BP BP 05/02/17 15:14 90 84 150/67 H 157/71 H 05/02/17 12:28 89 79 183/86 H 171/78 H 05/02/17 11:43 98.2 F 84 16 05/02/17 09:33 80 05/02/17 09:28 98.4 F 80 16 BP BP Pulse Ox Pulse Ox Pulse Ox 05/02/17 15:14 94 L 93 L 05/02/17 12:28 94 L 91 L 05/02/17 11:43 151/70 H 94 L 05/02/17 09:33 05/02/17 09:28 166/71 H 93 L Weight Weight 173 lb 3.2 oz Most Recent Monitor Data Heart Rate from ECG 75 NIBP 132/53 NIBP BP-Mean 68 Respiration from ECG 15 SpO2 96 I&O: 05/01/17 05/02/17 05/03/17 06:59 06:59 06:59 Intake Total 700 960 Output Total 1190 2950 Balance -490 -1989 Result Diagrams: 05/02/17 05:04 05/02/17 05:04 Phys Exam - Physical Examination Constitutional: NAD HEENT: PERRLA Neck: no JVD Respiratory: no wheezing Cardiovascular: no significant murmur Gastrointestinal: non-tender Musculoskeletal: pulses present Neurological: moves all 4 limbs Psychiatric: A&O x 3 Dx/Plan (1) HTN (hypertension) Code(s): I10 - ESSENTIAL (PRIMARY) HYPERTENSION Status: Acute Qualifiers: Hypertension type: essential hypertension Qualified Code(s): I10 - Essential (primary) hypertension Comment: Continue Losartan, Metoprolol and Nifedipine (2) Hypokalemia Code(s): E87.6 - HYPOKALEMIA Status: Acute Comment: KCL replacement with CCU electrolyte protocol (3) NSTEMI (non-ST elevated myocardial infarction) Code(s): I21.4 - NON-ST ELEVATION (NSTEMI) MYOCARDIAL INFARCTION Status: Acute Comment: Left heart cath with severe 3v dz, ASA, Statin. S/P CABG x 3v on 04/29/2017 (4) S/P CABG x 3 Code(s): Z95.1 - PRESENCE OF AORTOCORONARY BYPASS GRAFT Status: Acute Comment: post-op CABG protocol, Nitro gtt (5) HLD (hyperlipidemia) Code(s): E78.5 - HYPERLIPIDEMIA, UNSPECIFIED Status: Chronic Qualifiers: Hyperlipidemia type: unspecified Qualified Code(s): E78.5 - Hyperlipidemia , unspecified Comment: Lipitor 40mg HS - Plan * continue current treatment * f/u cvts and card plan * cont cardiac rehab
[2017-05-02] MEDS: HYDROcodone/Acetaminophen 5/325 mg Tablet PO PRN (18:15)
[2017-05-02] MEDS ORDERED: Sodium Chloride 0.9% 30 ML ONE (20:45)
[2017-05-02] MEDS: Docusate 100 MG CAP PO SCH (21:23)
[2017-05-02] MEDS: Atorvastatin Calcium 40 MG TAB PO SCH (21:23)
[2017-05-02] MEDS: Zolpidem Tartrate 5 MG TAB PO PRN (21:24)
[2017-05-03] MEDS: HYDROcodone/Acetaminophen 5/325 mg Tablet PO PRN ×3 (06:40→18:11)
[2017-05-03] MEDS ORDERED: Potassium Chloride 20 MEQ TAB PO SCH (07:00)
[2017-05-03] MEDS ORDERED: Metolazone 5 MG TAB PO SCH (07:00)
[2017-05-03] MEDS: Fenofibrate Nanocrystallized 145 MG TAB PO SCH (09:03)
[2017-05-03] MEDS: Losartan 25 MG TAB PO SCH (09:03)
[2017-05-03] MEDS: Furosemide 20 MG TAB PO SCH (09:03)
[2017-05-03] MEDS: NIFEdipine XL 60 MG TAB PO SCH (09:03)
[2017-05-03] MEDS: Famotidine 20 MG TAB PO SCH ×2 (09:03→21:04)
[2017-05-03] MEDS: Aspirin 325 mg Enteric Coated Tablet PO SCH (09:03)
[2017-05-03] MEDS: Cefuroxime Axetil 250 MG TAB PO SCH ×2 (09:03→21:03)
[2017-05-03] MEDS ORDERED: Furosemide 20 MG/2 ML VIAL SLOW IVP SCH (09:15)
--- NOTE | 2017-05-03 09:25 | PRG ---
DATE OF SERVICE: 05/03/2017 SUBJECTIVE: Ms. Mayes states she is wheezing occasionally, she is still somewhat short of breath. PHYSICAL EXAMINATION: VITAL SIGNS: Blood pressure this morning is 144/67 followed by 172/79, pulse 86 regular. LUNGS: Clear now. CARDIAC: Normal S1, normal S2. ASSESSMENT: 1. Status post bypass surgery. 2. Hypertension continues despite being back on home medicines. PLAN: 1. Give her an extra dose of intravenous furosemide. 2. Keep one more day to try to get her blood pressure better controlled prior to discharge.
--- NOTE | 2017-05-03 10:53 | RAD ---
AP VIEW CHEST: HISTORY: Cough. DATE: 05/03/17. COMPARISON: Comparison is made to previous exam from 04/30/17. FINDINGS: AP view chest demonstrates sternotomy wires seen. The right subclavian central line is seen. EKG le ads are seen over the chest. The lungs are well aerated. No evidence of active intrathoracic diseas e is seen. No evidence of effusions, pneumonia, or pneumothorax seen. IMPRESSION: Unremarkable AP view chest. POS: [facility]
[2017-05-03 12:10] VITALS: BMI 29.5
[2017-05-03] MEDS ORDERED: Diltiazem 125 MG in Sodium Chloride 0.9% 100 ML IVPB SCH ×2 (12:30→13:11)
[2017-05-03 12:45] LABS: Oxyhemoglobin 97.5 % (94.0-97.0); Sodium 140 mmol/L (135-148)
[2017-05-03 12:45] LABS: Oxyhemoglobin 97.7 % (94.0-97.0); Sodium 141 mmol/L (135-148)
[2017-05-03 12:45] LABS: Oxyhemoglobin 97.5 % (94.0-97.0); Sodium 142 mmol/L (135-148)
[2017-05-03 12:45] LABS: Base Excess -0.8 mEq/L (0 (+/- 2.5)); pH (venous) 7.41 (7.35-7.45)
[2017-05-03 12:45] LABS: Oxyhemoglobin 97.8 % (94.0-97.0); Sodium 141 mmol/L (135-148)
[2017-05-03 12:47] LABS: Oxyhemoglobin 97.7 % (94.0-97.0); Sodium 142 mmol/L (135-148)
--- NOTE | 2017-05-03 12:48 | PDOC.PN ---
- Subjective Encounter Start Date: 05/03/17 Encounter Start Time: 10:00 Pt seen and examined, chart reviewed, i have not seen this patient in 3 days. No F/C, no N/V/D/C. Hoping to go home soon with outpatient cardiac rehab. Seen by cardiology earlier, BP high prior to AM meds, wants to keep tonight to adjust. No acute events, no new complaints 10 point ROS performed and neg for all systems except as per HPI - Objective Resuscitation Status: Resuscitation Status FULL:Full Resuscitation MAR Reviewed: Yes Vital Signs & Weight: Vital Signs (12 hours) Temp Pulse Resp BP Pulse Ox 05/03/17 09:03 87 05/03/17 07:51 98.1 F 87 18 172/79 H 95 05/03/17 07:18 82 16 97 05/03/17 04:02 93 L 05/03/17 04:00 98.3 F 79 20 144/67 H 93 L Weight Admit Weight 168 lb 1.6 oz Weight 172 lb 3.2 oz Most Recent Monitor Data Heart Rate from ECG 75 NIBP 132/53 NIBP BP-Mean 68 Respiration from ECG 15 SpO2 96 I&O: 05/02/17 05/03/17 05/04/17 06:59 06:59 06:59 Intake Total 960 1710 240 Output Total 2950 3800 Balance -1989 240 Result Diagrams: 05/02/17 05:04 05/02/17 05:04 Radiology Reviewed by me: Yes EKG Reviewed by me: Yes Phys Exam - Physical Examination Constitutional: NAD HEENT: PERRLA, oral pharynx no lesions Neck: no nodes, no JVD, supple, full ROM Respiratory: no wheezing, no rales, no rhonchi, clear to auscultation bilateral Cardiovascular: RRR, no significant murmur, no rub Gastrointestinal: soft, non-tender, no distention, positive bowel sounds Musculoskeletal: pulses present, edema present Neurological: non-focal, normal sensation, moves all 4 limbs Lymphatic: no nodes Psychiatric: normal affect, A&O x 3 Skin: no rash, normal turgor, cap refill <2 seconds Deviation from normal: sternotomy incision C/D/I Dx/Plan (1) HTN (hypertension) Code(s): I10 - ESSENTIAL (PRIMARY) HYPERTENSION Status: Acute Qualifiers: Hypertension type: essential hypertension Qualified Code(s): I10 - Essential (primary) hypertension Comment: Continue Losartan, Metoprolol and Nifedipine (2) Hypokalemia Code(s): E87.6 - HYPOKALEMIA Status: Resolved (3) NSTEMI (non-ST elevated myocardial infarction) Code(s): I21.4 - NON-ST ELEVATION (NSTEMI) MYOCARDIAL INFARCTION Status: Acute Comment: Left heart cath with severe 3v dz, ASA, Statin. S/P CABG x 3v on 04/29/2017 (4) S/P CABG x 3 Code(s): Z95.1 - PRESENCE OF AORTOCORONARY BYPASS GRAFT Status: Acute Comment: post-op CABG protocol, Nitro gtt (5) HLD (hyperlipidemia) Code(s): E78.5 - HYPERLIPIDEMIA, UNSPECIFIED Status: Chronic Qualifiers: Hyperlipidemia type: unspecified Qualified Code(s): E78.5 - Hyperlipidemia , unspecified Comment: Lipitor 40mg HS - Plan cont current plan of care, PT/OT, incentive spirometry, out of bed/ambulate * . anticipate disharge in AM
--- NOTE | 2017-05-03 13:44 | PRG ---
DATE OF SERVICE: 05/03/2017 SERVICE: Pulmonary Medicine. INTERVAL HISTORY: The patient is doing fantastic from a respiratory standpoint. She is on room air. She has been working with physical therapy. Yesterday, we started diuresing her. Today, her respi ratory issues and cough is actually much improved. When she brings something up, it is a frothy whit e material with no color to it. PHYSICAL EXAMINATION: VITAL SIGNS: Afebrile, pulse 86, blood pressure 186/82, respirations 16, saturation 95% on room air. GENERAL: Patient is awake, alert, in no apparent distress. LUNGS: Excellent air entry. Dependent crackles are present. HEART: Normal rate, regular. ABDOMEN: Soft, nontender, nondistended. Bowel sounds positive. MUSCULOSKELETAL: No cyanosis or clubbing. No pitting in the bilateral lower extremities. NEUROLOGIC: Grossly nonfocal. LABORATORY DATA: Basic metabolic profile is unremarkable. Phosphorus is 2.0. IMAGING: Chest x-ray demonstrates no acute cardiopulmonary process. There is no significant cephali zation or pleural effusions present. ASSESSMENT: 1. Acute hypoxic respiratory failure, resolved. 2. Coronary artery disease, status post coronary artery bypass graft, postoperative day #4. 3. Hypertension. 4. [id number] myocardial infarction. PLAN: At this point, the patient has no further requirements for inpatient Pulmonary or Critical Car e opinion. As such, we will sign off. Please call with additional questions or concerns moving alphonseirais dove. She will need to be diuresed to euvolemia, which we are approaching fairly quickly.
[2017-05-03 14:24] LABS: Mode OR ABG; Vent YES
[2017-05-03 14:24] LABS: Mode OR ABG; Vent YES
[2017-05-03 14:25] LABS: Mode OR ABG; Vent YES
[2017-05-03 14:28] LABS: Mode OR ABG; Vent YES
[2017-05-03 14:28] LABS: Mode OR ABG; Vent YES
[2017-05-03] MEDS ORDERED: Enoxaparin Sodium 80 MG/0.8 ML SYRINGE SC SCH (21:00)
[2017-05-03] MEDS: Zolpidem Tartrate 5 MG TAB PO PRN (21:03)
[2017-05-03] MEDS: Benzonatate 100 MG CAP PO PRN (21:04)
[2017-05-03] MEDS: Enoxaparin Sodium 40 MG/0.4 ML SYRINGE SC SCH (21:04)
[2017-05-03] MEDS: Atorvastatin Calcium 40 MG TAB PO SCH (21:04)
[2017-05-03] MEDS: Docusate 100 MG CAP PO SCH (21:04)
[2017-05-04] MEDS: HYDROcodone/Acetaminophen 5/325 mg Tablet PO PRN (00:11)
[2017-05-04 05:18] LABS: Anion Gap 12 mmol/L (10-20); BUN (Urea Nitrogen) 22 mg/dL (9.8-20.1); Calc. Creatinine Clearance 71 mL/min (70-130); Calcium 9.8 mg/dL (7.8-10.44); Carbon Dioxide 29 mmol/L (23-31); Chloride 100 mmol/L (98-107); Estimated GFR-MDRD 75
[2017-05-04] MEDS: Furosemide 20 MG TAB PO SCH (10:13)
[2017-05-04] MEDS: Famotidine 20 MG TAB PO SCH ×2 (10:13→20:33)
[2017-05-04] MEDS: Fenofibrate Nanocrystallized 145 MG TAB PO SCH (10:13)
[2017-05-04] MEDS: Aspirin 325 mg Enteric Coated Tablet PO SCH (10:14)
[2017-05-04] MEDS: NIFEdipine XL 60 MG TAB PO SCH (10:14)
[2017-05-04] MEDS: Losartan 25 MG TAB PO SCH (10:14)
[2017-05-04] MEDS: Cefuroxime Axetil 250 MG TAB PO SCH ×2 (10:14→20:33)
[2017-05-04] MEDS: Enoxaparin Sodium 40 MG/0.4 ML SYRINGE SC SCH (10:15)
[2017-05-04] MEDS: Docusate 100 MG CAP PO SCH (20:33)
[2017-05-04] MEDS: Atorvastatin Calcium 40 MG TAB PO SCH (20:33)
--- NOTE | 2017-05-05 07:20 | PDOC.PN ---
- Subjective Encounter Start Date: 05/04/17 Encounter Start Time: 10:00 Pt looks better this morning. brendon Knott had 5 hours of aflutter/afib/aflutter , then back to sinus. No f/c, no N/V/D/c, no CP or SOb. CT surgery wants to kep overnight, and discharge tomorrow is stays in NSR 10 point ROS performed and neg for all systems except as per HPI - Objective Resuscitation Status: Resuscitation Status FULL:Full Resuscitation MAR Reviewed: Yes Vital Signs & Weight: Vital Signs (12 hours) Temp Pulse Resp BP Pulse Ox 05/05/17 07:02 75 20 95 05/05/17 04:00 98.6 F 84 16 129/66 93 L 05/05/17 00:43 83 18 92 L 05/04/17 19:45 98.5 F 104 H 20 137/61 92 L Weight Admit Weight 168 lb 1.6 oz Weight 165 lb 11.2 oz Most Recent Monitor Data Heart Rate from ECG 75 NIBP 132/53 NIBP BP-Mean 68 Respiration from ECG 15 SpO2 96 I&O: 05/04/17 05/05/17 05/06/17 06:59 06:59 06:59 Intake Total 2348 120 Output Total 4050 700 Balance -1702 -580 Result Diagrams: 05/02/17 05:04 05/04/17 04:20 Radiology Reviewed by me: Yes EKG Reviewed by me: Yes Phys Exam - Physical Examination Constitutional: NAD HEENT: PERRLA, moist MMs, sclera anicteric, oral pharynx no lesions Neck: no nodes, no JVD, supple, full ROM Respiratory: no wheezing, no rales, no rhonchi, clear to auscultation bilateral Cardiovascular: RRR, no significant murmur, no rub Gastrointestinal: soft, non-tender, no distention, positive bowel sounds Musculoskeletal: no edema, pulses present Neurological: non-focal, normal sensation, moves all 4 limbs Lymphatic: no nodes Psychiatric: normal affect, A&O x 3 Skin: no rash, normal turgor, cap refill <2 seconds Dx/Plan (1) HTN (hypertension) Code(s): I10 - ESSENTIAL (PRIMARY) HYPERTENSION Status: Acute Qualifiers: Hypertension type: essential hypertension Qualified Code(s): I10 - Essential (primary) hypertension Comment: Continue Losartan, Metoprolol and Nifedipine (2) Hypokalemia Code(s): E87.6 - HYPOKALEMIA Status: Resolved (3) NSTEMI (non-ST elevated myocardial infarction) Code(s): I21.4 - NON-ST ELEVATION (NSTEMI) MYOCARDIAL INFARCTION Status: Acute Comment: Left heart cath with severe 3v dz, ASA, Statin. S/P CABG x 3v on 04/29/2017 (4) S/P CABG x 3 Code(s): Z95.1 - PRESENCE OF AORTOCORONARY BYPASS GRAFT Status: Acute Comment: post-op CABG protocol, Nitro gtt (5) HLD (hyperlipidemia) Code(s): E78.5 - HYPERLIPIDEMIA, UNSPECIFIED Status: Chronic Qualifiers: Hyperlipidemia type: unspecified Qualified Code(s): E78.5 - Hyperlipidemia , unspecified Comment: Lipitor 40mg HS - Plan * .
--- NOTE | 2017-05-05 08:53 | PRG ---
DATE OF SERVICE: 05/05/2017 Ms. Mayes feels well today. No chest pain or pressure. She did not have any atrial fibrillation last night. PHYSICAL EXAMINATION: VITAL SIGNS: Blood pressure 129/66, pulse is 80. LUNGS: Clear. CARDIAC: Normal S1, S2. ASSESSMENT: 1. Post-bypass surgery. 2. Paroxysmal atrial fibrillation, not having recurrence now. 3. Hypertension, controlled. PLAN: Okay with me to go home. Follow up with Dr. Oreilly in a couple of weeks.
[2017-05-05] MEDS: Famotidine 20 MG TAB PO SCH (09:28)
[2017-05-05] MEDS: Aspirin 325 mg Enteric Coated Tablet PO SCH (09:28)
[2017-05-05] MEDS: Losartan 25 MG TAB PO SCH (09:28)
[2017-05-05] MEDS: Furosemide 20 MG TAB PO SCH (09:28)
[2017-05-05] MEDS: Cefuroxime Axetil 250 MG TAB PO SCH (09:28)
[2017-05-05] MEDS: NIFEdipine XL 60 MG TAB PO SCH (09:28)
[2017-05-05] MEDS: Fenofibrate Nanocrystallized 145 MG TAB PO SCH (09:28)
--- NOTE | 2017-05-05 12:04 | DIS ---
DATE OF ADMISSION: 04/27/2017 DATE OF DISCHARGE: 05/05/2017 DISCHARGE DIAGNOSES: 1. Zrc-EN-rueahecrv myocardial infarction. 2. Status post coronary artery bypass grafting x3 vessels. 3. Hypertension, essential. 4. Hyperlipidemia. 5. Obesity. 6. History of ovarian tumor, status post resection. 7. Gastroesophageal reflux disease. CONSULTATIONS: 1. Cardiology, Dr. Alton Oreilly. 2. Cardiothoracic surgery Dr. Clint Boyce. 3. Pulmonary Critical Care, Dr. Darci Mondragon. PROCEDURES: 1. Percutaneous transluminal coronary angiography on 04/27/2017. 2. A 2D echocardiogram on 04/27/2017 that showed ejection fraction 50%-55% with hypokinetic inferior wall, mild MR and TR. 3. Coronary artery bypass grafting x3 vessels by Dr. Clint Boyce on 04/29/2017. HOSPITAL COURSE: Ms. Mayes is a pleasant 81-year-old white female with history of hypertension, hyper lipidemia who presented in the emergency department on 04/27/2017 complaining of neck and arm pain. This has been going on over the last 3-4 weeks prior to presentation and worsened 24-48 hours and had associated diaphoresis. Workup in the ER showed a bjr-OA-zoonndznu NC. She was given Lovenox, aspirin and Cardiology were co nsulted. She was subsequently admitted to our service. The patient was seen and examined by Dr. Miranda and was admitted to the hospitalist service. The patie nt was seen by Dr. Alton Oreilly on 04/28/2017. They decided to proceed with cardiac catheterization and that was done on 04/28/2017. Catheterization revealed a significant multivessel coronary artery disease and Dr. Boyce was consulted. He saw her also on 04/28/2017, and plans were made to proceed with coronary artery bypass grafting with potential targets of the LAD, the OM2 and the PDA with surg shiva planned for 04/29/2017. On 04/29/2017, she was taken to the operating room and had her surgical procedure done. She had a LI MA to the LAD, she had a reverse saphenous vein graft to the PDA and had a second reverse saphenous v ein graft to the OM2. There were no known intraoperative complications. Postop, she was transferred to the ICU and watched overnight. I saw the first time on 04/30/2017, as we managed her blood pressure and hyperlipidemia. She was fru strated that morning due to lack of therapy and discomfort, but was doing better. She continued to improve from 04/30/2017 until 05/05/2017 and was subsequently transferred to the [facility] or. On the evening of 05/03/2017, she developed atrial fibrillation with rapid ventricular response that lasted for about 5 hours and resolved spontaneously. Due to that surgery request, we will watch her overnight again and overnight from 05/04/2017 to 05/05/2017, she had no further arrhythmias. Stepan edward is feeling much better, was stable for discharge home with outpatient cardiac rehabilitation. PHYSICAL EXAMINATION: The patient was seen and examined on the day of discharge. Discharge plan and disposition was discussed with the patient [id number]-rl-erhg at the bedside. DISCHARGE MEDICATIONS: 1. Aspirin 325 mg daily. 2. Atorvastatin 40 mg p.o. at bedtime. 3. Tessalon Perles 100 mg p.o. t.i.d. p.r.n. Prescription sent. 4. Cefuroxime 250 mg p.o. b.i.d. for 5 more days. 5. Docusate 200 mg p.o. at bedtime. 6. Fenofibrate 160 mg p.o. q.a.m. 7. Lasix 20 mg p.o. daily. New prescription sent for 30-day supply with 2 refills. 7. Hydralazine 25 mg p.o. t.i.d. 8. Hydrocodone/APAP per surgery. 9. Losartan 100 mg p.o. q.a.m. 10. Metoprolol succinate 50 mg p.o. q.p.m. Prescription sent for 30 days with 2 refills. 11. Nabumetone 500 mg p.o. t.i.d. 12. Nifedipine 60 mg p.o. q.a.m. 13. Protonix 20 mg p.o. b.i.d. FOLLOWUP APPOINTMENTS: 1. Primary care physician with a week. 2. Dr. Boyce in 10 days for suture removal or staple removal. 3. Cardiology in 2-3 weeks. DISCHARGE DIET: Heart healthy, low sodium. DISCHARGE ACTIVITY: Per cardiopulmonary limits. [facility] [place], which [facility] to her [facility]. DISCHARGE INSTRUCTIONS: The patient was instructed to follow all discharge instructions from the [facility] and to return or call her primary doctor or the surgeons for any acute problems or return to [facility] emergency department if after hours.
[2017-05-05 16:31] VITALS: BP 142/73; TEMP 99.5
--- NOTE | 2017-05-18 17:24 | PQF ---
RANGEL ALCANTARA JOSEPH [id number] [id number] CLINICAL DOCUMENTATION CLARIFICATION FORM: POST DISCHARGE Addendum to original discharge summary date: ____ Late entry note date: __ DATE: 05/18/2017 Please exercise your independent, professional judgment in responding to the clarification form. Clinical indicators are provided on the bottom of this form for your review Please check appropriate box(s): [ ] Acute Respiratory Failure: [ ] with Hypoxia[ ] with Hypercapnia [ ] Acute On Chronic Respiratory Failure: [ ] with Hypoxia [ ] with Hypercapnia [ ] Acute Respiratory Failure due to: (etiology) [ ] Acute Respiratory Insufficiency following (if applicable): [ ] trauma [ ] surgery [ ] Chronic Respiratory Failure only [ ] with Hypoxia [ ] with Hypercapnia [ ] Hypoxia [ ] Other diagnosis [ ] Unable to determine In addition, please specify: Present on Admission (POA): [ ] Yes [ ] No [ ] Unable to determine For continuity of documentation, please document condition throughout progress notes and discharge summary. Thank You. CLINICAL INDICATORS - SIGNS / SYMPTOMS / LABS CONSULTATION: VITAL SIGNS: RR 16, saturations 98% on 27% FiO2 GENERAL: The patient is intubatedunder the influence of some sedation. LUNGS: Excellent air entry. There is no prolonged expiratory phase. I do not appreciate any crackles or rhonchi LABORATORY DATA: PH 7.46, pCO2 32, pO2 73 ASSESSMENT: Acute hypoxic respiratory failure, improving TREATMENTS: Oxygen Monitoring of oxygenation status Mechanical ventilation / BiPAP Respiratory treatments Neb treatments ABGs Diuresis Pulmonary Consult (This form is maintained as a part of the permanent medical record) 2014 [employer]. All Rights Reserved Stevo [email or web address] [phone] [email or web address]
--- NOTE | 2017-05-22 15:30 | EKG ---
Test Reason : Blood Pressure : / mmHG Vent. Rate : 060 BPM Atrial Rate : 060 BPM P-R Int : 208 ms QRS Dur : 106 ms QT Int : 406 ms P-R-T Axes : 060 -36 103 degrees QTc Int : 406 ms Normal sinus rhythm Left axis deviation Left ventricular hypertrophy with repolarization abnormality Abnormal ECG Confirmed by OBI GUILLORY D.O. ([id number]), senior editor WILLIAM RAY ([id number]) on 05/22/2017 3:29:56 PM Referred By: Confirmed By:OBI GUILLORY D.O.
== END 2017-05-05 17:44 | disposition home or self-care (01) | DRG 233 ==
LOC: ERS 16:04 → 2NO 17:26 → CCU 04-29 09:02 → 2NO 04-30 16:11
PROVIDERS: ADMIT Family Medicine; ATTEND Family Medicine
PROC: 4A023N7 Measurement of Cardiac Sampling and Pressure, Left Heart, Percutaneous Approach (ICD-10-PCS; 2017-04-28)
PROC: B2111ZZ Fluoroscopy of Multiple Coronary Arteries using Low Osmolar Contrast (ICD-10-PCS; 2017-04-28)
PROC: B2151ZZ Fluoroscopy of Left Heart using Low Osmolar Contrast (ICD-10-PCS; 2017-04-28)
PROC: 02100Z9 Bypass Coronary Artery, One Artery from Left Internal Mammary, Open Approach (ICD-10-PCS; principal; 2017-04-29)
PROC: 021109W Bypass Coronary Artery, Two Arteries from Aorta with Autologous Venous Tissue, Open Approach (ICD-10-PCS; 2017-04-29)
PROC: 06BQ4ZZ Excision of Left Saphenous Vein, Percutaneous Endoscopic Approach (ICD-10-PCS; 2017-04-29)
PROC: 0Y3D0ZZ Control Bleeding in Left Upper Leg, Open Approach (ICD-10-PCS; 2017-04-29)
PROC: 5A1221Z Performance of Cardiac Output, Continuous (ICD-10-PCS; 2017-04-29)
PROC: 30233N1 Transfusion of Nonautologous Red Blood Cells into Peripheral Vein, Percutaneous Approach (ICD-10-PCS; 2017-04-29)
DX: I21.4 Non-ST elevation (NSTEMI) myocardial infarction (principal); J96.01 Acute respiratory failure with hypoxia; I48.92 Unspecified atrial flutter; E11.9 Type 2 diabetes mellitus without complications; I10 Essential (primary) hypertension; D64.9 Anemia, unspecified; E78.5 Hyperlipidemia, unspecified; Z90.710 Acquired absence of both cervix and uterus; I48.0 Paroxysmal atrial fibrillation; K21.9 Gastro-esophageal reflux disease without esophagitis; I25.10 Atherosclerotic heart disease of native coronary artery without angina pectoris; J40 Bronchitis, not specified as acute or chronic; E66.9 Obesity, unspecified; Z68.28 Body mass index [BMI] 28.0-28.9, adult; Z90.721 Acquired absence of ovaries, unilateral; E87.6 Hypokalemia
CPT/HCPCS: 36415; 36416; 36430; 71010; 80048; 80061; 80069; 82805; 84484; 85007; 85025; 85027; 85610; 85730; 86850; 86900; 86901; 93005; 93010; 93306; 93458; 93798; 94002; 94150; 94640; 94760; A4216; C1769; J1265; J1642; J1644; J1650; J1815; J1885; J1940; J2001; J2150; J2250; J2274; J2405; J2440; J2704; J2720; J3010; J3370; J3475; J3480; J7050; J7620; P9016; P9045; S0017; S0028

== ENCOUNTER 2018-02-03 15:59 | Emergency (ER) | payer MEDICARE ==
[2018-02-03] MEDS ORDERED: Proparacaine 0.5% Opth 15 ML BOT ONE ×2 (16:17→16:19)
[2018-02-03] MEDS ORDERED: Fluorescein Opthalmic Strip ONE (16:17)
[2018-02-03] MEDS ORDERED: hydrALAZINE 20 MG/ML VIAL ONE (16:26)
[2018-02-03 17:14] LABS: Troponin I Less than 0.010 ng/mL (< 0.028)
--- NOTE | 2018-02-05 10:53 | EKG ---
Test Reason : BRADYCARDIA Blood Pressure : / mmHG Vent. Rate : 045 BPM Atrial Rate : 045 BPM P-R Int : 188 ms QRS Dur : 094 ms QT Int : 434 ms P-R-T Axes : 050 -36 -01 degrees QTc Int : 375 ms Marked sinus bradycardia Left axis deviation Voltage criteria for left ventricular hypertrophy Abnormal ECG Confirmed by BABITA MARTINEZ, BECKI ([id number]), acquisitions editor WILLIAM RAY ([id number]) on 02/05/2018 10:53:08 AM Referred By: Confirmed By:BECKI JC MD
== END 2018-02-03 17:08 | disposition home or self-care (01) ==
LOC: ERS 15:59
DX: I10 Essential (primary) hypertension (principal); R00.1 Bradycardia, unspecified; E78.1 Pure hyperglyceridemia; M19.90 Unspecified osteoarthritis, unspecified site; Z79.899 Other long term (current) drug therapy
CPT/HCPCS: 36415; 93005; 96374; J0360

== ENCOUNTER → 2018-03-18 | Day surgery (SDC) | payer MEDICARE ==
[2018-03-17 11:43] VITALS: BMI 23.8
[~2018-03-18] MED LIST: Lidocaine 1% PF 5 ML VIAL ONE; Sodium Bicarbonate 2.5 MEQ/5 ML VIAL ONE
[2018-03-18 08:19] VITALS: BP 175/82; TEMP 97.7
--- NOTE | 2018-03-18 09:29 | ULT ---
SONOGRAPHIC GUIDED FNA RIGHT THYROID LOBE MASS: Date: 03/18/18 HISTORY: Right thyroid mass. 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 Sterile technique, buffered local anesthesia, sonographic guid ance, and an anterior approach were used to carefully advance a 25 gauge needle into the mass. A tota l of four passes were made for fine needle aspirate. Tissue was submitted for pathology for evaluatio n. Postprocedure imaging shows no evidence of complication. The patient tolerated the procedure well and was dismissed in good condition. IMPRESSION: Technically successful sonographic guided FNA right thyroid lobe mass. Pathology is pending. POS: NAOMI
== END ==
LOC: ULT 06:54
PROVIDERS: ATTEND Otolaryngology Plastic Surgery within the Head & Neck
PROC: 0GBH3ZX Excision of Right Thyroid Gland Lobe, Percutaneous Approach, Diagnostic (ICD-10-PCS; principal; 2018-03-18)
DX: E07.89 Other specified disorders of thyroid (principal); I25.10 Atherosclerotic heart disease of native coronary artery without angina pectoris; Z95.1 Presence of aortocoronary bypass graft; I10 Essential (primary) hypertension; E78.5 Hyperlipidemia, unspecified; Z87.891 Personal history of nicotine dependence; Z79.82 Long term (current) use of aspirin; Z79.899 Other long term (current) drug therapy
CPT/HCPCS: 10022; 76942; 88173; J2001

== ENCOUNTER 2019-05-02 15:28 | Outpatient (CLI) | payer MEDICARE | END 2019-05-02 15:29 | disposition home or self-care (01) | LOC: CTENTCT 15:28 | PROVIDERS: ATTEND Otolaryngology Plastic Surgery within the Head & Neck | DX: J32.8 Other chronic sinusitis (principal) | CPT/HCPCS: 70486 ==

== ENCOUNTER 2019-05-04 10:28 | Outpatient (CLI) | payer MEDICARE ==
--- NOTE | 2019-05-04 11:35 | BD ---
DEXA BONE DENSITY: HISTORY: Menopausal female. Screening study. COMPARISON: None. FINDINGS: Lumbar Spine: BMD (g/cm2) L1 0.808 T-Score: -1.7 0.9 L2 0.922 T-Score: -1.0 1.8 L3 0.990 T-Score: -0.9 2.1 L4 1.016 T-Score: -0.4 2.6 L1-L4 0.941 T-Score: -1.0 1.9 Femoral Neck: 0.512 T-Score: -3.0 -0.5 Total Femur: 0.579 T-Score: -3.0 -0.6 Impression: Lumbar spine: WHO classification normal. Fracture risk not increased. Femoral neck: Who classification is osteoporosis. Ten-year fracture risk: Fracture risk not reported because some T-scores are at or below -2.5. POS: OFF
== END 2019-05-04 10:29 | disposition home or self-care (01) ==
LOC: BICMAMMO 10:28
PROVIDERS: ATTEND Family Medicine
DX: Z13.820 Encounter for screening for osteoporosis (principal); Z00.00 Encounter for general adult medical examination without abnormal findings; M81.0 Age-related osteoporosis without current pathological fracture; Z78.0 Asymptomatic menopausal state
CPT/HCPCS: 77080